=== PATIENT | female | born 1970 ===

== ENCOUNTER 2017-11-15 12:50 | Emergency (ER) | payer OTHER ==
[2017-11-15 13:00] VITALS: RESP 18
[2017-11-15 15:21] LABS: SQUAMOUS EPITHIAL 6 /hpf (0-5); URINE BILIRUBIN NEGATIVE (NEGATIVE); URINE BLOOD NEGATIVE (NEGATIVE); URINE CLARITY Hazy (Clear); URINE COLOR Yellow (YELLOW); URINE GLUCOSE (UA) NORMAL (Normal); URINE LEUKOCYTE ESTERASE NEG Leu/uL (Negative); URINE PROTEIN NEGATIVE (NEGATIVE); URINE UROBILINOGEN NORMAL mg/dL (0.2-1.0)
--- NOTE | 2017-11-15 15:58 | C.PDOC ---
History Of Present Illness 47 y/o female presents to the ED complaining of 3 day history of generalized abdominal pain. When asked where pain is, she also points to the left lower quadrant. Patient has PMHx of a left ovarian cyst. No associated nausea, vomiting, diarrhea, dysuria, frequency, incontinence, vaginal discharge or bleeding,fever, or chills. Of note, patient states LMP was 3 months ago. She denies any vaginal bleeding. Time Seen by Provider: 11/15/17 13:17 Chief Complaint (Nursing): Abdominal Pain History Per: Patient History/Exam Limitations: no limitations Onset/Duration Of Symptoms: Days Current Symptoms Are (Timing): Still Present Past Medical History Reviewed: Historical Data, Nursing Documentation, Vital Signs Vital Signs: Last Vital Signs Temp 98.7 F 11/15/17 12:57 Pulse 76 11/15/17 12:57 Resp 18 11/15/17 12:57 BP 162/92 H 11/15/17 12:57 Pulse Ox 97 11/15/17 16:58 Other Surgeries: Cyst removal Family History: States: Unknown Family Hx - Social History Hx Tobacco Use: No Hx Alcohol Use: No Hx Substance Use: No - Immunization History Hx Tetanus Toxoid Vaccination: No Hx Influenza Vaccination: No Hx Pneumococcal Vaccination: No Review Of Systems Constitutional: Negative for: Fever, Chills Gastrointestinal: Positive for: Abdominal Pain. Negative for: Nausea, Vomiting , Diarrhea Genitourinary: Negative for: Dysuria, Frequency, Incontinence, Vaginal Discharge , Vaginal Bleeding Physical Exam - Physical Exam Appears: Non-toxic, No Acute Distress Skin: Warm, Dry, No Rash Head: Atraumatic, Normacephalic Eye(s): bilateral: Normal Inspection Oral Mucosa: Moist Neck: Supple Chest: No Tenderness Cardiovascular: Rhythm Regular, No Murmur Respiratory: Normal Breath Sounds, No Rales, No Rhonchi, No Wheezing Gastrointestinal/Abdominal: Soft, Tenderness (mild suprapubic/left pelvic tenderness), No Distention, No Guarding, No Rebound Back: No CVA Tenderness Extremity: Bilateral: Atraumatic, Normal Color And Temperature, Normal ROM Neurological/Psych: Oriented x3, Normal Speech, Normal Cognition ED Course And Treatment O2 Sat by Pulse Oximetry: 97 (RA) Pulse Ox Interpretation: Normal Medical Decision Making Medical Decision Making: Impression: Abdominal Pain Plan: --UA --Urine POC --Transvaginal US 1653 pt with right ovarian cyst seen on us, left ovary not visualized. pt in no distress. reval of abdomen, soft. nfd, nt . ua neg for infection. d/c pt home with licensed appraiser f/u Disposition Counseled Patient/Family Regarding: Studies Performed, Diagnosis, Need For Followup - Disposition Referrals: [facility] at [facility] [Outside] Disposition: HOME/ ROUTINE Disposition Time: 16:59 Condition: GOOD Additional Instructions: Por favor ramiro un seguimiento en la clnica para mujeres en [facility] (llame a la clnica mdica para hacer maycol kyle) o con blandon propio gineclogo. El ovario carin no se ve en la ecografa, hay un quiste en el ovario derecho y se sugiere repetir la ecografa en 3-6 meses. Tylenol para el dolor Regrese a la freddie de emergencias por cualquier sntoma peor. Please follow up in womens clinic at [facility] (call medical clinic to make an appointment) or with your own cardiac surgeon. Left ovary not seen on sonogram, there is a cyst on right ovary- and a repeat ultrasound in 3-6 months is suggested. Tylenol for pain. Return to ER for any worse symptoms. Instructions: Ovarian Cyst (DC) Forms: Gen Discharge Inst Icelandic, [facility] (Icelandic) - Clinical Impression Clinical Impression: Ovarian cyst - PA / HEAD ANIMAL TRAINER / Resident Statement MD/DO has reviewed & agrees with the documentation as recorded. - Scribe Statement The provider has reviewed the documentation as recorded by the Scribe (Tahmina Mcnair) All medical record entries made by the Scribe were at my direction and personally dictated by me. I have reviewed the chart and agree that the record accurately reflects my personal performance of the history, physical exam, medical decision making, and the department course for this patient. I have also personally directed, reviewed, and agree with the discharge instructions and disposition.
--- NOTE | 2017-11-15 16:38 | US ---
Date of service: 11/15/2017 HISTORY: left pelvic pain , hx ovarian cyst COMPARISON: 04/07/2016. TECHNIQUE: Transabdominal and transvaginal pelvic ultrasound was performed. FINDINGS: UTERUS: Measures 8.1 x 4.0 x 5.9 cm. Anteverted, normal in size and appearance. No fibroid or other mass lesion seen. ENDOMETRIUM: Measures 6.1 mm in diameter. Normal in appearance. CERVIX: No cervical abnormality identified. RIGHT OVARY: Measures 4.0 x 2.2 x 3.5 cm. No solid mass. Normal flow. There is a 3.3 x 1.7 x 2.9 cm simple cyst. LEFT OVARY: Not visualized. FREE FLUID: No significant free fluid noted. OTHER FINDINGS: None. IMPRESSION: 1. 3.3 cm simple cyst in the right ovary. No torsion. Follow-up ultrasound in 3-6 month interval is recommended to assess stability/resolution. 2. The left ovary is not visualized. 3. Normal appearance of the uterus and central endometrial echo complex.
[2017-11-15 17:56] VITALS: BP 160/98; PULSE 85; TEMP 98.1; O2SAT 100
== END 2017-11-15 18:03 | disposition home or self-care (01) ==
LOC: C.ER 12:50
DX: N83.201 Unspecified ovarian cyst, right side (principal)